=== PATIENT | female | born 1955 | race Caucasian/White ===

== ENCOUNTER 2024-03-18 16:50 | Emergency (ER) | payer SELFPAY ==
[~2024-03-18] VITALS: Ht 149.9 cm; Wt 45.4 kg
[2024-03-18 16:56] VITALS: BP 155/70; PULSE 60; RESP 20; TEMP 98.1; O2SAT 98
[2024-03-18 18:14] LABS: HEMATOCRIT 28.7 % (36-48); HEMOGLOBIN 9.2 g/dL (12.0-16.0); LYMPHOCYTES # (AUTO) 0.4 K/uL (2.5-16.5); LYMPHOCYTES % (AUTO) 4.6 % (20.5-51.1); MEAN CORPUSCULAR HEMOGLOBIN 22 pg (27-31); MEAN CORPUSCULAR HGB CONC 32 g/dL (33-37); MEAN CORPUSCULAR VOLUME 68.3 fL (80-94); MONOCYTES # (AUTO) 0.5 K/uL (0.8-1.0); MONOCYTES % (AUTO) 5.5 % (1.7-9.3); NEUTROPHILS # (AUTO) 8.4 K/uL (1.8-7.7); NEUTROPHILS % (AUTO) 89.9 % (42.2-75.2); PLATELET COUNT (AUTO) 157 K/uL (140-450); RED CELL DISTRIBUTION WIDTH 14.2 % (11.6-13.7); WHITE BLOOD COUNT (AUTO) 9.3 K/uL (4.8-10.8)
[2024-03-18 18:23] LABS: ANION GAP 11.1 (8-16); CALCIUM 8.2 mg/dL (8.5-10.1); CARBON DIOXIDE 26.4 mmol/L (21-32); CREATININE 0.9 mg/dL (0.6-1.3); POTASSIUM 3.5 mmol/L (3.5-5.1)
[2024-03-18 19:03] VITALS: TEMP 98.1
[2024-03-18] MEDS: ONDANSETRON 4 MG/2 ML VIAL IVP ONE (19:40)
[2024-03-18] MEDS: NACL 0.9% 1,000 ML IV ONE (19:42)
[2024-03-18] MEDS ORDERED: MECLIZINE 25 MG TAB ONE (20:00)
[2024-03-18] MEDS: MECLIZINE 25 MG TAB PO ONE (20:02)
[2024-03-18 21:47] LABS: INR 1.05 (0.8-1.2); PARTIAL THROMBOPLASTIN TIME 34.2 secs (22-35.6)
[2024-03-18 21:55] LABS: BILIRUBIN,URINE NEGATIVE (NEGATIVE); BLOOD, URINE TRACE-I (NEGATIVE); COLOR,URINE YELLOW (YELLOW); LEUKOCYTE ESTERASE ,URINE TRACE (NEGATIVE); NITRITE, URINE NEGATIVE (NEGATIVE); PROTEIN,URINE NEGATIVE (NEGATIVE); UGLUCOSE 1+ (NEGATIVE); UROBILINOGEN,URINE 0.2 EU/dL (0.2 - 1)
[2024-03-18 22:03] LABS: APPEARANCE,URINE SLIGHTLY HAZY (CLEAR)
[2024-03-18] MEDS: fentaNYL citrate 0.05 MG/ML VIAL IVP ONE (22:09)
[2024-03-18 22:13] VITALS: BP 158/66; PULSE 57; RESP 16
[2024-03-18 22:14] VITALS: O2SAT 98
[2024-03-18 22:39] LABS: BACTERIA,URINE 10-30 (MOD) /HPF (None Seen); MUCUS,URINE 1+ /LPF (None Seen); RBC,URINE 0-5 /HPF (0-5); SQUAMOUS EPITHELIAL CELL,UR 0-3 (FEW) /LPF (0-3 (FEW)); WBC,URINE 20-60 /HPF (0-5)
== END 2024-03-18 22:45 | disposition short-term general hospital (02) ==
LOC: MED 16:50
DX: I61.8 Other nontraumatic intracerebral hemorrhage (principal); I10 Essential (primary) hypertension; K21.9 Gastro-esophageal reflux disease without esophagitis
CPT/HCPCS: 36415; 70450; 71045; 80048; 81001; 84484; 85025; 85610; 85730; 87086; 87186; 93005; 96361; 96374; 96375; 99291; J2405; J3010; J7030; J8597; Q0092; 99285